=== PATIENT | male | born 1995 | race Caucasian/White ===

== ENCOUNTER 2016-10-03 11:55 | Emergency (ER) | payer BC ==
[2016-10-03 12:38] VITALS: BP 124/65
--- NOTE | 2016-10-03 14:55 | UC ---
Throat Pain/Nasal Kristian HPI - HPI Summary HPI Summary: TWO DAYS OF SINUS CONGESTION PRESSURE, HOARSE VOICE. NO FEVER. NO COUGH. - History of Current Complaint Hx Obtained From: Patient, Family/Ins[employer] Onset/Duration: Gradual Onset, Lasting Days, Still Present Severity: Mild Pain Intensity: 0 Pain Scale Used: 0-10 Numeric Associated Signs & Symptoms: Positive: Hoarseness, Sinus Discomfort, Nasal Discharge - Epiglottits Risk Factors Epiglottis Risk Factors: Negative <Aries Caballero - Last Filed: 10/03/16 14:49> <Shantell Wang - Last Filed: 10/04/16 08:09> - History of Current Complaint Chief Complaint: UCGeneralIllness Stated Complaint: SINUSES Time Seen by Provider: 10/03/16 13:02 - Allergies/Home Medications Allergies/Adverse Reactions: Allergies Allergy/AdvReac Type Severity Reaction Status Date / Time No Known Allergies Allergy Verified 10/03/16 12:37 PMH/Surg Hx/FS Hx/Imm Hx Previously Healthy: Yes - Surgical History Surgical History: None - Family History Known Family History: Negative: Respiratory Disease - Social History Occupation: Employed Full-time Lives: With Family Alcohol Use: Occasionally Substance Use Type: None Smoking Status (MU): Never Smoked Tobacco - Immunization History Most Recent Influenza Vaccination: [id number] <Aries Caballero - Last Filed: 10/03/16 14:49> Review of Systems Constitutional: Negative Skin: Negative Eyes: Negative ENT: Nasal Discharge Respiratory: Negative Cardiovascular: Negative Gastrointestinal: Negative Genitourinary: Negative Motor: Negative Neurovascular: Negative Musculoskeletal: Negative Neurological: Negative Psychological: Negative All Other Systems Reviewed And Are Negative: Yes <Aries Caballero - Last Filed: 10/03/16 14:49> Physical Exam Triage Information Reviewed: Yes Appearance: Ill-Appearing - MILDLY Vital Signs: Initial Vital Signs Temp 98.6 F 10/03/16 12:32 Pulse 75 10/03/16 12:32 Resp 17 10/03/16 12:32 BP 124/65 10/03/16 12:32 Pulse Ox 100 10/03/16 12:32 Vital Signs Reviewed: Yes Eye Exam: Normal ENT: Positive: Hearing grossly normal, Pharynx normal, Nasal congestion, TMs normal, Tonsillar swelling Dental Exam: Normal Neck exam: Normal Neck: Positive: Supple, Nontender, No Lymphadenopathy Respiratory Exam: Normal Respiratory: Positive: Chest non-tender, Lungs clear, Normal breath sounds, No respiratory distress, No accessory muscle use Cardiovascular Exam: Normal Cardiovascular: Positive: RRR, No Murmur, Pulses Normal, Brisk Capillary Refill Abdominal Exam: Normal Musculoskeletal Exam: Normal Musculoskeletal: Positive: Strength Intact, ROM Intact Neurological Exam: Normal Psychological Exam: Normal Psychological: Positive: Normal Response To Family Skin Exam: Normal <Aries Caballero - Last Filed: 10/03/16 14:49> Vital Signs: Initial Vital Signs Temp 98.6 F 10/03/16 12:32 Pulse 75 10/03/16 12:32 Resp 17 10/03/16 12:32 BP 124/65 10/03/16 12:32 Pulse Ox 100 10/03/16 12:32 <Shantell Wang - Last Filed: 10/04/16 08:09> Throat Pain/Nasal Course/Dx - Differential Dx/Diagnosis Differential Diagnosis/HQI/PQRI: Pharyngitis, Tonsillitis, URI Provider Diagnoses: UPPER RESPIRATORY INFECTION <Aries Caballero - Last Filed: 10/03/16 14:49> Discharge <Aries Caballero - Last Filed: 10/03/16 14:49> <Shantell Wang - Last Filed: 10/04/16 08:09> - Discharge Plan Condition: Stable Disposition: HOME Prescriptions: Fluticasone NASAL SPRAY 50MCG* [Flonase NASAL SPRAY 50MCG*] 2 spray BOTH NARES DAILY #1 btl Patient Education Materials: Upper Respiratory Infection (ED), Viral Syndrome ( ED) Referrals: [facility] [Outside] No Primary Care Phys,NOPCP [Primary Care Provider] - Attestation Statement User Type: Provider - I was available for consult. This patient was seen by the TEQUILA. The patient was not presented to, seen by, or examined by me. -Javed <Shantell Wang - Last Filed: 10/04/16 08:09>
== END 2016-10-03 13:45 | disposition home or self-care (01) ==
LOC: UCCORT 11:55
DX: J06.9 Acute upper respiratory infection, unspecified (principal)
CPT/HCPCS: 87651; 99202; G0463

== ENCOUNTER 2019-05-24 13:37 | Emergency (ER) | payer BC, OTHER ==
[2019-05-24 13:54] VITALS: BP 142/101
--- NOTE | 2019-05-24 14:00 | UC ---
Back Pain HPI - HPI Summary HPI Summary: The patient presents to urgent care reporting he has back pain. Patient states he is low back pain since Tuesday. Patient denies any specific trauma. The patient states he works at [employer] but denies any injury. Patient denies any radiation. Patient's been taking 400mg of Motrin once daily with mild relief. No paresthesias. No change of bowel or bladder. No leg weakness. Patient has never had a problem with this before. Patient has not seen anybody for it. Patient uncooperative because this pain. 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 Patient's concerned about his back and that this will effect his duties there. Patient came in requesting a light duty note. Patient did not call his primary care provider. Patient without any other complaints. Patient' s medications as entered in the EMR by triage nurse reviewed this visit. - History of Current Complaint Chief Complaint: UCBackPain Stated Complaint: LOWER BACK PAIN Time Seen by Provider: 05/24/19 13:59 Hx Obtained From: Patient Severity Initially: Mild Severity Currently: Mild Pain Intensity: 6 Pain Scale Used: 0-10 Numeric Back Pain: Is Discrete @ - left lower back - Allergies/Home Medications Allergies/Adverse Reactions: Allergies Allergy/AdvReac Type Severity Reaction Status Date / Time No Known Allergies Allergy Verified 05/24/19 13:48 Home Medications: Home Medications Ibuprofen TAB* [Advil TAB*] 400 mg PO Q4H PRN 05/24/19 [History Confirmed ] PMH/Surg Hx/FS Hx/Imm Hx Previously Healthy: Yes - Surgical History Surgical History: None - Family History Known Family History: Positive: Non-Contributory Negative: Respiratory Disease - Social History Occupation: Employed Full-time Lives: With Family Alcohol Use: Occasionally Substance Use Type: None Smoking Status (MU): Never Smoked Tobacco - Immunization History Most Recent Influenza Vaccination: [id number] Review of Systems All Other Systems Reviewed And Are Negative: Yes Constitutional: Positive: Negative Skin: Positive: Negative Musculoskeletal: Positive: Other: - back pain Is Patient Immunocompromised?: No Physical Exam - Summary Physical Exam Summary: A+Ox3, no distress Eyes: Conjunctiva Clear, NERISSA. EOM intact and full ENT: Hearing grossly normal TM x 2 clear, mmoist, uvula midline, no exudate, no erythema Neck: Positive: Supple Respiratory: Positive: No respiratory distress, No accessory muscle use + CTA throughout no w/r Cardiovascular: RRR nl s1, s2 no m/r CBT <2 sec abd soft + BS nt/nd no guarding, no distension Musculoskeletal Exam: no spinous process pain c/t/l/s Full AROM c spine + paraspinal distal lumbar, elft pain with direct palp + SLE + flex/ext knee, ankle + great toe extension Neurological: Positive: Alert, + sensation throughout full strength no clonus Psychological: Positive: Normal Response To lvn Skin: Positive: no rash, no ecchymosis, no pain or lesion at gluteal cleft Triage Information Reviewed: Yes Vital Signs: Initial Vital Signs Temp 98.1 F 05/24/19 13:49 Pulse 69 05/24/19 13:49 Resp 14 05/24/19 13:49 BP 142/101 05/24/19 13:49 Pulse Ox 100 05/24/19 13:49 Back Pain Course/Dx - Course Course Of Treatment: Patient presents to urgent care reporting 4-5 days of back pain. Patient has any direct trauma. Patient denies any past due to leg weakness. Patient's been taking 400 mg of Motrin daily with short-term improvement. 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 On exam patient does have point tenderness left paraspinal distal lumbar region. Patient distal CSM full and intact. No concern for infection or pilonidal cyst. We'll do plain film x- rays as patient's or head imaging. We will give 600 mg Motrin. We'll check urine. Discussed with patient to follow these are negative will likely write a note that states he can participate as able related to pain. Prolonged stretching. Patient states he understands and is couple. Patient understands he needs to follow his primary care doctor and strict return precautions. Patient will be given a discomfort with images for follow-up appointment. - Differential Dx/Diagnosis Provider Diagnosis: Low back pain Discharge ED - Sign-Out/Discharge Documenting (check all that apply): Patient Departure All imaging exams completed and their final reports reviewed: Yes - Discharge Plan Condition: Stable Disposition: HOME Patient Education Materials: Low Back Strain (ED), Lower Back Exercises (ED) Forms: *Gen. Provider Communication, *Work Release [facility] [Provider Group] No Primary Care Phys,NOPCP [Primary Care Provider] - Additional Instructions: - Okay to alternate ibuprofen (Advil, Motrin) 600mg and Acetaminophen (Tylenol) every 3hours as needed for pain. Take with food. D -Apply moist heat to your back for 20 minutes at a time, 4-5 times a day. Once your muscles are warm, slow gentle stretching exercises are important -Contact your doctor today to arrange a follow-up appointment next week. -If you pain is uncontrolled - go to an emergency department for further treatment - Billing Disposition and Condition Condition: STABLE Disposition: Home
[2019-05-24] MEDS: Ibuprofen TAB* 600 MG PO ONE (14:12)
== END 2019-05-24 14:48 | disposition home or self-care (01) ==
LOC: UCCORT 13:37
DX: M54.5 Low back pain (principal)
CPT/HCPCS: 72100; 81003; 99212; A9270-GY; G0463